=== PATIENT | male | born 1995 | race Caucasian/White ===

== ENCOUNTER 2017-08-11 21:43 | Emergency (ER) | payer SELFPAY ==
[~2017-08-11] VITALS: Ht 172.7 cm; Wt 53.3 kg
[2017-08-11 22:14] VITALS: Ht 172.7 cm; Wt 53.3 kg
[2017-08-12 01:14] VITALS: BP 140/65
== END 2017-08-12 01:14 | disposition home or self-care (01) ==
LOC: ED 21:43
DX: H66.42 Suppurative otitis media, unspecified, left ear (principal)
CPT/HCPCS: J0696